=== PATIENT | male | born 1990 | race Caucasian/White ===

== ENCOUNTER 2022-12-14 09:41 | Emergency (ER) | payer SELFPAY ==
--- NOTE | ~2022-12-14 | CT_ITS ---
EXAMINATION: CT ABDOMEN AND PELVIS WITHOUT CONTRAST CLINICAL INFORMATION: Flank pain COMPARISON: None available. TECHNIQUE: Multidetector volumetric imaging was performed from the superior aspect of the liver through the pubic symphysis. Sagittal and coronal reformatted images were obtained on the technologist's workstation. This CT examination was performed using dose optimization techniques as appropriate, variously including the following: *Automated exposure control *Adjustment of mA and/or kV according to patient size (this includes techniques or standardized protocols for targeted exams where dose is matched to indication/reason for exam; i.e. extremities or head) *Use of iterative reconstruction technique DLP: 291 mGy-cm FINDINGS: Motion degrades this study LUNG BASES: The visualized lung bases are unremarkable. LIVER, GALLBLADDER, AND BILIARY TREE: Cannot exclude a low-density lesion in the right lobe. Coronal image 12 and axial image 34. Measures approximately 1.7 cm. Another possible small lesion on image 22 the axial imaging. The gallbladder is unremarkable with no evidence of radiopaque gallstones, gallbladder wall thickening, or obvious pericholecystic inflammatory changes. PANCREAS: Pancreas is not adequately seen due to lack of intravenous and oral contrast. No free fluid in the area. SPLEEN: Unremarkable. ADRENAL GLANDS: Unremarkable. KIDNEYS AND URETERS: Findings suggest some tiny foci which may represent tiny nonobstructing calculi versus nephrocalcinosis. There is a definitive calculus in the lower pole on the right measuring 3 mm which appears nonobstructing. Other smaller densities or calcifications are noted in the region of the renal periods. Possible mild hydronephrosis on the right. The right ureter is prominent to the level of the UVJ. Here we see a 3 mm calcification which may represent a distal ureteral calculus on the right. BLADDER: Unremarkable. GASTROINTESTINAL TRACT: The bowel pattern is felt to be overall nonobstructing. There is low density and coronal image 32 measuring approximately 2.5 x 1.6 cm. This could represent focal fluid within the bowel loop. Occult to evaluate on this noncontrast study. Appendix is not seen. Again limited from packed abdominal structures and no contrast ABDOMINAL WALL: No significant hernia is appreciated. LYMPH NODES: No bulky adenopathy VASCULAR: Unremarkable. PELVIC VISCERA: Unremarkable. OSSEOUS STRUCTURES: Findings suggest spondylolysis at L5-S1 on the right with possible healed spondylolysis on the left. There is grade 1 anterolisthesis of L5 relative to S1. CT/CT abdomen pelvis wo IV con IMPRESSION: Findings as described above. Mild hydronephrosis on the right and the ureter is prominent which does lead up to a 3 mm calculus in the deep pelvis. This may well represent a mildly obstructing distal right ureteral calculus near the UVJ. Otherwise smaller areas of increased density within the right and left kidney may represent evolving renal calculi. Nephrocalcinosis of other etiology cannot be excluded. Motion and lack of intravenous contrast as stated limits this exam. I cannot exclude a low-density lesion in the right lobe of liver consider ultrasound. Other findings are as described above Fleischner guidelines were followed.
[2022-12-14 09:58] VITALS: BP 000/00; PULSE 68; RESP 22; TEMP 35.7; O2SAT 100; BMI 20.2
--- NOTE | 2022-12-14 10:47 | ED.ABDPAIN ---
HPI - Abdominal Pain General Chief Complaint: Abdominal Pain Stated Complaint: severe stomach pain Time Seen by Provider: 12/14/22 10:27 Source: patient and coater associate Mode of arrival: ambulatory Limitations: no limitations History of Present Illness HPI narrative: 32 y/o [place] speaking male presents to the ER for evaluation of severe right sided flank pain that started at 7am today. The pain woke him up out of sleep. He states the pain is sharp, severe and is constant. It wraps around from his right middle back to the right side of his middle abdomen. It is associated with nausea but he has not vomited. He reports subjective fevers and chills. No urinary symptoms. No constipation or diarrhea. He reports history of kidney stone in the past but it did not feel like this. MD elicited complaint: abdominal pain and flank pain Pertinent past history: none Onset (ago): hour(s) (4) Location: R flank Severity: severe Pain scale (0-10): 10 Quality: stabbing and sharp Radiation: RUQ and RLQ Exacerbating factors: nothing Relieving factors: nothing Associated symptoms: nausea, fever and chills Related Data Previous Rx's Medication Instructions Recorded ibuprofen 600 mg tablet 600 mg PO Q8H PRN pain #20 tabs 12/14/22 oxycodone 5 mg tablet 5 mg PO Q8H PRN severe pain (scale 12/14/22 score 7-10) #6 tabs prednisone 20 mg tablet 40 mg PO DAILY #6 tabs 12/14/22 tamsulosin 0.4 mg capsule (Flomax) 0.4 mg PO DAILY #14 caps 12/14/22 Allergies Allergy/AdvReac Type Severity Reaction Status Date / Time No Known Allergies Allergy Verified 12/14/22 10:04 Review of Systems Review of Systems Yes all other systems are reviewed and are negative [facility] Social History Social History Alcohol intake: current Smoked in Last 30 Days: Yes Use of substances other than those prescribed or required for medical reasons: Yes Substance Use Type: Crack/Cocaine and Marijuana Advance Directives: No Advance Directives Information Provided: Yes Physical Exam ED Vital Signs: Vital Signs - 24 hr 12/14/22 09:58 12/14/22 10:55 12/14/22 11:35 Temperature 96.3 F L Pulse Rate 68 55 51 Respiratory Rate 22 H 22 H 24 H Blood Pressure 000/00 L 123/69 98/63 Pulse Oximetry 100 100 96 Oxygen Delivery Method Room Air Room Air Room Air 12/14/22 13:26 Temperature Pulse Rate 53 Respiratory Rate 16 Blood Pressure 112/76 Pulse Oximetry 98 Oxygen Delivery Method Room Air BMI result Body Mass Index 20.2 Appearance: Alert. Oriented X3. Pacing in the room, restless Head: normocephalic, atraumatic. Eyes: Pupils equal, round and reactive to light. ENT: Pharynx normal. No tonsillar swelling or exudate. Neck: Normal inspection. Neck supple. CVS: Normal heart rate and rhythm. Pulses normal. Respiratory: No respiratory distress. Breath sounds normal. Abdomen: Thin, soft with right sided tenderness in the middle abdomen. Negative Pritchard's sign. +BS x4 +CVA tenderness on the right. Skin: Skin warm and dry. Normal skin color. Normal skin turgor. No rashes. Extremities: No lower extremity edema. No joint swelling. Neuro/psych: Oriented X 3. No motor deficit. No sensory deficit. CN II-XII intact. Normal speech and cognition. Medical Decision Making Medical Decision Making [facility] Narrative: 32 yo male presenting with acute onset of right sided flank pain that radiates to the right side of his abdomen. He arrives to the ER in significant pain. +CVA tenderness. Concern for obstructing stone. Labs showing mild leukocytosis, likely reactive. no fevers. he was treated with IVF, morphine and toradol with significant improvement in his pain. CT scan showing 3mm stone distal ureter w/ mild hydro. discussed findings, dx and tx with the patient using a staff attorney. he is stable for d/c home with pain control and urology follow up. Differential Diagnosis Differential Diagnoses: The differential diagnosis associated with the presentation includes ureteral stone with hydronephrosis, pyelonephritis, UTI, cholecystitis, appendicitis, musclar pain Lab Data [facility] Lab Attestation statement: I reviewed the patient's lab results. 12/14/22 10:39 12/14/22 10:39 Labs: Lab Results 12/14/22 12/14/22 12/14/22 Range/Units 10:39 10:39 14:46 WBC 12.0 H (4.8-10.8) X10*3/uL RBC 4.71 (4.60-5.80) X10*6/uL Hgb 15.0 (14.0-18.0) g/dl Hct 42.5 (42.0-52.0) % MCV 90.2 (80.0-98.0) fL MCH 31.8 (27.0-33.0) pg MCHC 35.3 (31.0-36.0) g/dl RDW 11.2 (11.0-16.0) % Plt Count 302 (160-400) X10*3/uL MPV 10.6 (9.4-12.4) fL Immature Gran % (Auto) 0.5 H (0.0-0.4) % Neut % (Auto) 76.1 H (45-73) % Lymph % (Auto) 17.1 L (20-40) % [place] % (Auto) 5.5 (2-11) % Eos % (Auto) 0.4 (0-4) % Baso % (Auto) 0.4 (0-2) % Lymph # (Auto) 2.1 (1.2-4.9) X10*3/uL [place] # (Auto) 0.7 (0.1-1.2) X10*3/uL Eos # (Auto) 0.1 (0.0-0.4) X10*3/uL Baso # (Auto) 0.1 (0.0-0.2) X10*3/uL Abs Immat Gran (auto) 0.06 H (0.00-0.03) X10*3/uL Absolute Neuts (auto) 9.2 H (2.0-8.3) x10*3/uL Absolute Nucleated RBC 0.000 (0.0-0.012) X10*3/uL Nucleated RBC % (auto) 0.0 (0.0-0.2) /100WBC Sodium 139 (135-145) mmol/L Potassium 4.2 (3.3-5.1) mmol/L Chloride 107 (96-108) mmol/L Carbon Dioxide 19 L (22-29) mmol/L Anion Gap 17 (12-20) BUN 15 (9-16) mg/dL Creatinine 1.14 (0.5-1.4) mg/dL Estim Creat Clear Calc 72.7 Estimated GFR > 60 Random Glucose 124 H (60-115) mg/dL Calcium 9.9 (8.4-10.2) mg/dL Total Bilirubin 0.5 (0.0-1.0) mg/dL Direct Bilirubin 0.1 (0.0-0.5) mg/dL AST 22 (5-37) U/L ALT 15 (0-40) U/L Alkaline Phosphatase 68 (39-117) U/L Total Protein 7.5 (6.5-8.0) g/dL Albumin 4.8 (3.5-5.0) g/dL Lipase 34 (8-78) U/L Urine Color Yellow Urine Appearance Hazy Urine pH 8.5 (5.0-9.0) Ur Specific [place] 1.015 (1.005-1.025) Urine Protein Trace (Neg-Trace) mg/dL Urine Glucose (UA) Negative (Negative) mg/dL Urine Ketones 15 (Negative) mg/dL Urine Blood Large (3+) H (Negative) Urine Nitrite Negative (Negative) Ur Leukocyte Esterase Negative (Negative) Independent Interpretation I performed an independent interpretation of an: CT Scan Interpretation: hydronephrosis on the right, stones within the right kidney and in the distal ureter near the bladder Radiology Impression Discussion of test interpretation with radiology: I have reviewed the radiologist's reading. Radiologist Impression: CT/CT abdomen pelvis wo IV con IMPRESSION: Findings as described above. Mild hydronephrosis on the right and the ureter is prominent which does lead up to a 3 mm calculus in the deep pelvis. This may well represent a mildly obstructing distal right ureteral calculus near the UVJ. ? Otherwise smaller areas of increased density within the right and left kidney may represent evolving renal calculi. Nephrocalcinosis of other etiology cannot be excluded. ? Motion and lack of intravenous contrast as stated limits this exam. I cannot exclude a low-density lesion in the right lobe of liver consider ultrasound. ? Other findings are as described above ? Fleischner guidelines were followed. Prescription Management I considered prescription management with: Pain Medication Medications Administered Discontinued Medications Generic Name Dose Route Start Last Admin Trade Name Freq PRN Reason Stop Dose Admin Ketorolac Tromethamine 30 mg 12/14/22 10:40 12/14/22 10:52 Ketorolac Tromethamine 30 Mg/Ml Vial IVPUSH 12/14/22 10:41 30 mg ONCE ONE Administration Morphine Sulfate 4 mg 12/14/22 10:41 12/14/22 10:52 Morphine Sulfate 4 Mg/Ml Cartridge IVPUSH 12/14/22 10:42 4 mg ONCE ONE Administration Protocol Ondansetron HCl 4 mg 12/14/22 10:40 12/14/22 10:52 Ondansetron Hcl 4 Mg/2 Ml Vial IVPUSH 12/14/22 10:41 4 mg ONCE ONE Administration Prednisone 40 mg 12/14/22 12:57 12/14/22 13:20 Prednisone 20 Mg Tablet PO 12/14/22 12:58 40 mg ONCE ONE Administration Tamsulosin HCl 0.4 mg 12/14/22 12:57 12/14/22 13:20 Tamsulosin Hcl 0.4 Mg Capsule PO 12/14/22 12:58 0.4 mg ONCE ONE Administration Critical Care Time Critical Care Time Critical Care Time: No Discharge Plan Discharge Clinical Impression: Hydronephrosis with ureteral calculus Patient Disposition: Home, Self-Care Instructions: Ureteral Stones (ED) Additional Instructions: Your CT scan showed a 3mm kidney stone that is causing your pain You will likely pass this stone on your own at home Take all of the prescribed medications as directed Start the predisnone and tamsulosin tomorrow because you were given doses of these in the ER today Drink plenty of fluids Follow up with Urology, name and number below If you develop new or worsening symptoms call 911 or come back to the ER for further evaluation. Phillips tomograf?a computarizada mostr? un c?lculo renal de 3 mm que est? causando phillips dolor Es probable que pase esta jermain por phillips cuenta en casa [place] todos los medicamentos recetados seg?n las indicaciones. Comience con la predisona y la tamsulosina ma?tram porque le dieron dosis de estos en la tyler de emergencias hoy. Beber mucho l?quido Seguimiento con Urolog?a, nombre y n?cele a continuaci?n Si desarrolla s?ntomas nuevos o que empeoran, llame al 911 o regrese a la tyler de emergencias para tommy evaluaci?n adicional. Prescriptions: New tamsulosin [Flomax] 0.4 mg capsule 0.4 mg PO DAILY Qty: 14 0RF ibuprofen 600 mg tablet 600 mg PO Q8H PRN (Reason: pain) Qty: 20 0RF oxycodone 5 mg tablet 5 mg PO Q8H PRN (Reason: severe pain (scale score 7-10)) Qty: 6 0RF Rx Instructions: Partial Fill upon patient request. prednisone 20 mg tablet 40 mg PO DAILY Qty: 6 0RF Referrals: Gibran Robbins MD [Physician] - (kidney stone w/ hydro) Print Language: [place]
[2022-12-14 10:50] LABS: MANUAL DIFF FLAG NO
[2022-12-14] MEDS: Ketorolac Tromethamine 30 MG/ML VIAL IVPUSH (10:52)
[2022-12-14] MEDS: ondansetron HCL 4 MG/2 ML VIAL IVPUSH (10:52)
[2022-12-14] MEDS: Morphine Sulfate 4 MG/ML CARTRIDGE IVPUSH (10:52)
[2022-12-14 10:55] VITALS: BP 123/69; PULSE 55; RESP 22; O2SAT 100
[2022-12-14 10:56] LABS: Basophils Absolute Auto 0.1 X10*3/uL (0.0-0.2); Basophils Percent Auto 0.4 % (0-2); Eosinophils Absolute Auto 0.1 X10*3/uL (0.0-0.4); Eosinophils Percent Auto 0.4 % (0-4); Hematocrit 42.5 % (42.0-52.0); Imm Gran Abs Auto 0.06 X10*3/uL (0.00-0.03); Imm Gran Pct Auto 0.5 % (0.0-0.4); Lymphocytes Absolute Auto 2.1 X10*3/uL (1.2-4.9); Lymphocytes Percent Auto 17.1 % (20-40); Mean Corpuscular HGB Conc 35.3 g/dl (31.0-36.0); Mean Corpuscular Hemoglobin 31.8 pg (27.0-33.0); Mean Corpuscular Volume 90.2 fL (80.0-98.0); Mean Platelet Volume 10.6 fL (9.4-12.4); Monocytes Absolute Auto 0.7 X10*3/uL (0.1-1.2); Monocytes Percent Auto 5.5 % (2-11); Neutrophils Absolute Auto 9.2 x10*3/uL (2.0-8.3); Neutrophils Percent Auto 76.1 % (45-73); Platelet Count 302 X10*3/uL (160-400); Red Blood Count 4.71 X10*6/uL (4.60-5.80); Red Cell Distribution Width 11.2 % (11.0-16.0)
[2022-12-14 11:15] LABS: Alanine Aminotransferase 15 U/L (0-40); Albumin Level 4.8 g/dL (3.5-5.0); Alkaline Phosphatase 68 U/L (39-117); Anion Gap 17 (12-20); Aspartate Amino Transferase 22 U/L (5-37); Bilirubin Direct 0.1 mg/dL (0.0-0.5); Bilirubin Total 0.5 mg/dL (0.0-1.0); Blood Urea Nitrogen 15 mg/dL (9-16); Calcium 9.9 mg/dL (8.4-10.2); Carbon Dioxide 19 mmol/L (22-29); Chloride 107 mmol/L (96-108); Creatinine Clr Calc Pharmacy 72.7; Estimated Glomerular Filt Rate > 60; Glucose Random 124 mg/dL (60-115); Lipase 34 U/L (8-78); Potassium 4.2 mmol/L (3.3-5.1); Sodium 139 mmol/L (135-145); Total Protein 7.5 g/dL (6.5-8.0)
[2022-12-14 11:35] VITALS: BP 98/63; PULSE 51; RESP 24; O2SAT 96
--- NOTE | 2022-12-14 12:38 | PC.NURSE ---
s/p medication interventions pt asleep, appears more restful. awaits dispo
[2022-12-14] MEDS: Tamsulosin HCL 0.4 MG CAPSULE PO (13:20)
[2022-12-14] MEDS: predniSONE 20 MG TABLET 40 MG PO (13:20)
[2022-12-14 13:26] VITALS: BP 112/76; PULSE 53; RESP 16; O2SAT 98
[2022-12-14 14:53] LABS: Appearance Urine Hazy; Color Urine Yellow; Glucose Urine UA Negative (Negative); Leukocyte Esterase Urine Negative (Negative); Nitrite Urine Negative (Negative); PH 8.5 (5.0-9.0); Specific Gravity - Urine 1.015 (1.005-1.025); UMIC TRIGGER UACC YES; Urine Blood Large (3+) (Negative); Urine Ketones 15 mg/dL (Negative); Urine Protein Trace mg/dL (Neg-Trace)
[2022-12-14 17:55] LABS: Bacteria Urine None Seen (None Seen); Hyaline Casts Urine 0-2 /LPF (0-2); RBC Urine >20 /HPF (0-2); Squamous Epithelial Cell Urine 0-2 /HPF (0-2); WBC Urine 0-5 /HPF (0-5)
== END 2022-12-14 15:34 | disposition home or self-care (01) ==
PROVIDERS: Emergency Provider Emergency Medicine
DX: N13.2 Hydronephrosis with renal and ureteral calculous obstruction (principal); Z79.899 Other long term (current) drug therapy
CPT/HCPCS: 36415; 74176; 80048; 80076; 81001; 83690; 85025; 96374; 96375; 99284; J1885; J2270; J2405

== ENCOUNTER 2025-01-31 11:46 | Emergency (ER) | payer SELFPAY ==
--- NOTE | ~2025-01-31 | CT_ITS ---
EXAMINATION: CT ABDOMEN AND PELVIS WITHOUT CONTRAST CLINICAL INFORMATION: Left flank pain. DLP: 255 mGY*cm COMPARISON: December 14, 2022 TECHNIQUE: Multidetector volumetric imaging was performed from the superior aspect of the liver through the pubic symphysis. Sagittal and coronal reformatted images were obtained on the technologist's workstation. This CT examination was performed using dose optimization techniques as appropriate, variously including the following: *Automated exposure control *Adjustment of mA and/or kV according to patient size (this includes techniques or standardized protocols for targeted exams where dose is matched to indication/reason for exam; i.e. extremities or head) *Use of iterative reconstruction technique FINDINGS: LUNG BASES: The visualized lung bases are unremarkable. LIVER, GALLBLADDER, AND BILIARY TREE: There is a low attenuating lesion in the anterior-inferior right hepatic lobe measuring 1.9 x 2.0 cm and 44 Hounsfield units. It appeared similar on the prior study.. The gallbladder is unremarkable with no evidence of radiopaque gallstones, gallbladder wall thickening, or obvious pericholecystic inflammatory changes. PANCREAS: Unremarkable. SPLEEN: Unremarkable. ADRENAL GLANDS: Unremarkable. KIDNEYS AND URETERS: Again noted is evidence of faint medullary nephrocalcinosis involving the right greater than left kidneys. There are a few punctate 1 mm stones in the kidneys, bilateral. Due to robust muscle bulk, very little intra-abdominal fat, and an empty urinary bladder, delineation of the ureters in the abdomen and pelvis is limited. There is mild hydronephrosis on the left and a 4 mm stone in the distal ureter, near the UVJ. BLADDER: Decompressed. Left UVJ stone. GASTROINTESTINAL TRACT: Somewhat limited evaluation due to low intra-abdominal fat and well developed musculature. The small and large bowel are unremarkable. The appendix is not well seen. ABDOMINAL WALL: No significant hernia is appreciated. LYMPH NODES: Normal. VASCULAR: Unremarkable. PELVIC VISCERA: Unremarkable. OSSEOUS STRUCTURES: Bilateral pars intraarticularis defect is present at L5 with nonunion on the right and deformity with bridging bone on the left. CT/CT abdomen pelvis wo IV con IMPRESSION: 4 mm left UVJ stone with mild hydronephrosis. Suspected mild nephrocalcinosis, right greater than left. Possible etiologies include distal renal tubular acidosis, medullary sponge kidney, hyperparathyroidism, as well as other etiologies. Indeterminate liver lesion in segment 5. Follow-up MRI dynamic liver protocol without and with IV contrast. 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 Fleischner guidelines were followed. Electronically signed by: Blue Rice MD 01/31/2025 01:10 PM EDT
--- NOTE | 2025-01-31 12:06 | ED_ITS ---
HPI - Abdominal Pain General Chief Complaint: Abdominal Pain Stated Complaint: Severe abd pain Time Seen by Provider: 01/31/25 12:34 Related Data Previous Rx's ?Medication ?Instructions ?Recorded ibuprofen 600 mg tablet 600 mg PO Q8H PRN pain #20 tabs 12/14/22 oxycodone 5 mg tablet 5 mg PO Q8H PRN severe pain (scale 12/14/22 score 7-10) #6 tabs prednisone 20 mg tablet 40 mg (2 x 20 mg) PO DAILY #6 tabs 12/14/22 tamsulosin 0.4 mg capsule (Flomax) 0.4 mg PO DAILY #14 caps 12/14/22 ketorolac 10 mg tablet 10 mg PO Q8H 5 days #15 tabs 01/31/25 ondansetron 4 mg disintegrating 4 mg PO Q12H PRN nausea and 01/31/25 tablet vomiting 5 days #10 tabs prednisone 20 mg tablet 40 mg (2 x 20 mg) PO DAILY PRN 01/31/25 pain (scale score 4-6) 5 days #10 tabs tamsulosin 0.4 mg capsule (Flomax) 0.4 mg PO BEDTIME #14 caps 01/31/25 Allergies Allergy/AdvReac Type Severity Reaction Status Date / Time No Known Allergies Allergy Verified 01/31/25 12:09 [facility] Social History Social History Alcohol intake: current Alcohol intake frequency: a few times a week Smoked in Last 30 Days: Yes Substance Use Type: Crack/Cocaine and Marijuana Advance Directives: No Advance Directives Information Provided: Yes Physical Exam ED Vital Signs: Vital Signs - 24 hr 01/31/25 12:07 01/31/25 12:47 01/31/25 14:00 Temperature 97.2 F 98.8 F Pulse Rate 64 61 56 Respiratory Rate 38 H 16 16 Blood Pressure 123/54 L 104/62 107/62 Pulse Oximetry 100 100 96 Oxygen Delivery Method Room Air Room Air BMI result Body Mass Index 18.2 Course Course Course Narrative: This is an RME: Additional HPI, ROS, PE not included below will be deferred to primary provider. RME assessment and note performed by: Karli Ward PA-C This is a [id number] who presents to the ER with concerns for severe left sided flank pain which started this AM. Associated nausea and vomiting. Decreased urinary output. Hx of kidney stones, took flomax and prednisone rx from 2022 this morning. Plan: Labs, UA, further ER eval needed Reevaluation(s) Reevaluation #1: this is a duplicate note. please see lydia's note regarding patient's visit on 01/31/25 Medical Decision Making Lab Data 01/31/25 12:45 01/31/25 12:45 Labs: Lab Results 01/31/25 01/31/25 Range/Units 12:45 16:12 WBC 10.0 (4.8-10.8) X10*3/uL RBC 4.42 L (4.60-5.80) X10*6/uL Hgb 14.0 (14.0-18.0) g/dl Hct 39.5 L (42.0-52.0) % MCV 89.4 (80.0-98.0) fL MCH 31.7 (27.0-33.0) pg MCHC 35.4 (31.0-36.0) g/dl RDW 11.8 (11.0-16.0) % Plt Count 237 (160-400) X10*3/uL MPV 10.3 (9.4-12.4) fL Immature Gran % (Auto) 0.3 (0.0-0.4) % Neut % (Auto) 72.6 (45-73) % Lymph % (Auto) 20.0 (20-40) % [place] % (Auto) 5.7 (2-11) % Eos % (Auto) 0.7 (0-4) % Baso % (Auto) 0.7 (0-2) % Lymph # (Auto) 2.0 (1.2-4.9) X10*3/uL [place] # (Auto) 0.6 (0.1-1.2) X10*3/uL Eos # (Auto) 0.1 (0.0-0.4) X10*3/uL Baso # (Auto) 0.1 (0.0-0.2) X10*3/uL Abs Immat Gran (auto) 0.03 (0.00-0.03) X10*3/uL Absolute Neuts (auto) 7.3 (2.0-8.3) x10*3/uL Absolute Nucleated RBC 0.000 (0.0-0.012) X10*3/uL Nucleated RBC % (auto) 0.0 (0.0-0.2) /100WBC Sodium 141 (135-145) mmol/L Potassium 3.7 (3.3-5.1) mmol/L Chloride 108 (96-108) mmol/L Carbon Dioxide 21 L (22-29) mmol/L Anion Gap 16 (12-20) BUN 14 (9-16) mg/dL Creatinine 0.98 (0.5-1.4) mg/dL Estim Creat Clear Calc 79.0 Estimated GFR > 60 Random Glucose 136 H (60-115) mg/dL Calcium 9.9 (8.4-10.2) mg/dL Magnesium 1.9 (1.6-2.6) mg/dL Total Bilirubin 0.4 (0.0-1.0) mg/dL Direct Bilirubin 0.1 (0.0-0.5) mg/dL AST 21 (5-37) U/L ALT 16 (0-40) U/L Alkaline Phosphatase 67 (39-117) U/L Total Protein 7.2 (6.5-8.0) g/dL Albumin 5.0 (3.5-5.0) g/dL Lipase 62 (8-78) U/L Urine Color Yellow Urine Appearance Clear Urine pH >= 9.0 (5.0-9.0) Ur Specific [place] 1.025 (1.005-1.025) Urine Protein 100 (2+) H (Neg-Trace) mg/dL Urine Glucose (UA) Negative (Negative) mg/dL Urine Ketones 40 (Negative) mg/dL Urine Blood Moderate (2+) H (Negative) Urine Nitrite Negative (Negative) Ur Leukocyte Esterase Trace H (Negative) Urine RBC >20 H (0-2) /HPF Urine WBC 0-5 (0-5) /HPF Ur Squamous Epith Cells 0-2 (0-2) /HPF Urine Bacteria None Seen (None Seen) Hyaline Casts 0-2 (0-2) /LPF Medications Administered Discontinued Medications Generic Name Dose Route Start Last Admin Trade Name Freq PRN Reason Stop Dose Admin Hydromorphone HCl 1 mg 01/31/25 14:01 01/31/25 17:03 Hydromorphone Hcl 1 Mg/Ml Syringe IVPUSH 01/31/25 14:02 Not Given ONCE ONE Protocol Sodium Chloride 1,000 mls @ 999 mls/hr 01/31/25 13:00 01/31/25 14:30 Ns IV 01/31/25 14:00 Infused .Q1H1M [facility] In[facility] Ketorolac Tromethamine 30 mg 01/31/25 13:52 01/31/25 13:57 Ketorolac Tromethamine 30 Mg/Ml Vial IVPUSH 01/31/25 13:53 30 mg ONCE ONE Administration Morphine Sulfate 4 mg 01/31/25 12:59 01/31/25 13:19 Morphine Sulfate 4 Mg/Ml Cartridge IVPUSH 01/31/25 13:00 4 mg ONCE ONE Administration Protocol Ondansetron HCl 4 mg 01/31/25 12:59 01/31/25 13:19 Ondansetron Hcl 4 Mg/2 Ml Vial IVPUSH 01/31/25 13:00 4 mg ONCE ONE Administration Discharge Plan Discharge Clinical Impression: Calculus of ureterovesical junction (UVJ) Patient Disposition: Home, Self-Care Instructions: Ureteral Stones (ED) Additional Instructions: Your blood work today is reassuring. Your urine shows microscopic blood consistent with passing a stone. no infection. The CT scan of your abdomen shows a 4 mm stone attempting to pass into your bladder. This is causing your pain. A stone this size should pass on its own however I am prescribing some medication to help with its passage. Prednisone as a steroid that will help with inflammation. Take this as prescribed over the next few days. Flomax has been sent to your pharmacy. Take this as prescribed daily. Toradol as an anti-inflammatory pain medication that you were given through the IV in the ED today with improvement in pain. I am sending an oral prescription to your pharmacy. Do not take this with other NSAIDs such as Motrin as this can cause increased risk of GI bleeding. Please follow up with Urology. You have been provided with a referral. Call them to establish care. They will not call you.. Return with any new or worsening symptoms. In the case of an emergency call 911. Prescriptions: New prednisone 20 mg tablet 40 mg PO DAILY PRN (Reason: pain (scale score 4-6)) 5 Days Qty: 10 0RF tamsulosin [Flomax] 0.4 mg capsule 0.4 mg PO BEDTIME Qty: 14 0RF ondansetron 4 mg tablet,disintegrating 4 mg PO Q12H PRN (Reason: nausea and vomiting) 5 Days Qty: 10 0RF ketorolac 10 mg tablet 10 mg PO Q8H 5 Days Qty: 15 0RF No Action tamsulosin [Flomax] 0.4 mg capsule 0.4 mg PO DAILY Qty: 14 0RF ibuprofen 600 mg tablet 600 mg PO Q8H PRN (Reason: pain) Qty: 20 0RF oxycodone 5 mg tablet 5 mg PO Q8H PRN (Reason: severe pain (scale score 7-10)) Qty: 6 0RF Rx Instructions: Partial Fill upon patient request. prednisone 20 mg tablet 40 mg PO DAILY Qty: 6 0RF Referrals: [facility] [place] [facility] [Provider Group] - 1 week (4 mm UVJ stone) Interventions: ED Discharge Assessment Last Done: 01/31/25 17:01 Discharge Date/Time: 01/31/25 17:03 Print Language: Unable To Collect
[2025-01-31 12:07] VITALS: BP 123/54; PULSE 64; RESP 38; TEMP 36.2; O2SAT 100; BMI 18.2
[2025-01-31 12:47] VITALS: BP 104/62; PULSE 61; RESP 16; O2SAT 100
[2025-01-31 12:49] LABS: MANUAL DIFF FLAG NO
[2025-01-31 12:50] LABS: Basophils Absolute Auto 0.1 X10*3/uL (0.0-0.2); Basophils Percent Auto 0.7 % (0-2); Eosinophils Absolute Auto 0.1 X10*3/uL (0.0-0.4); Eosinophils Percent Auto 0.7 % (0-4); Hematocrit 39.5 % (42.0-52.0); Imm Gran Abs Auto 0.03 X10*3/uL (0.00-0.03); Imm Gran Pct Auto 0.3 % (0.0-0.4); Mean Corpuscular HGB Conc 35.4 g/dl (31.0-36.0); Mean Corpuscular Hemoglobin 31.7 pg (27.0-33.0); Mean Corpuscular Volume 89.4 fL (80.0-98.0); Mean Platelet Volume 10.3 fL (9.4-12.4); Monocytes Absolute Auto 0.6 X10*3/uL (0.1-1.2); Monocytes Percent Auto 5.7 % (2-11); Neutrophils Absolute Auto 7.3 x10*3/uL (2.0-8.3); Neutrophils Percent Auto 72.6 % (45-73); Platelet Count 237 X10*3/uL (160-400); Red Blood Count 4.42 X10*6/uL (4.60-5.80); Red Cell Distribution Width 11.8 % (11.0-16.0)
--- NOTE | 2025-01-31 12:54 | PC.NURSE ---
Patient is a [id number] who presents to the ER with concerns for severe left sided flank pain which started this AM. Associated nausea and vomiting. Decreased urinary output. Hx of kidney stones. Arrived in room 18 extremely uncomfortable. Writhing in pain. Lungs clear bilat. Respirations even and non-labored. Abdomen soft with c/o left flank pain. Positive pedal pulses with no edema noted.
--- NOTE | 2025-01-31 13:00 | ED.GENADULT ---
HPI - General Adult General Chief complaint: Abdominal Pain Stated complaint: Severe abd pain Time Seen by Provider: 01/31/25 12:34 Source: patient and family Mode of arrival: ambulatory Limitations: no limitations History of Present Illness ED Provider: BERENICE TOBAR PA-C HPI narrative: This is a 34 year old male with pmhx significant for nephrolithiasis who presents for left flank pain that began two hours ago. He rates his pain 20/10 in severity. Reports feeling like something is stuck when he is urinating. Reports vomiting twice this morning with associated suprapubic tenderness. His last kidney stone was 4-5 months ago and he was able to pass it on his own. States this feels similar. Trialed a dose of prednisone and flomax this morning which he states he had left over. Denies fever, diarrhea, constipation, burning with urination, or blood in urine. Related Data Previous Rx's ?Medication ?Instructions ?Recorded ibuprofen 600 mg tablet 600 mg PO Q8H PRN pain #20 tabs 12/14/22 oxycodone 5 mg tablet 5 mg PO Q8H PRN severe pain (scale 12/14/22 score 7-10) #6 tabs prednisone 20 mg tablet 40 mg (2 x 20 mg) PO DAILY #6 tabs 12/14/22 tamsulosin 0.4 mg capsule (Flomax) 0.4 mg PO DAILY #14 caps 12/14/22 ketorolac 10 mg tablet 10 mg PO Q8H 5 days #15 tabs 01/31/25 ondansetron 4 mg disintegrating 4 mg PO Q12H PRN nausea and 01/31/25 tablet vomiting 5 days #10 tabs prednisone 20 mg tablet 40 mg (2 x 20 mg) PO DAILY PRN 01/31/25 pain (scale score 4-6) 5 days #10 tabs tamsulosin 0.4 mg capsule (Flomax) 0.4 mg PO BEDTIME #14 caps 01/31/25 Allergies Allergy/AdvReac Type Severity Reaction Status Date / Time No Known Allergies Allergy Verified 01/31/25 12:09 Review of Systems Review of Systems: Constitutional: No fever, chills, fatigue, night sweats, weight changes ENT/Mouth: No ear pain, hearing loss, nasal congestion, sinus pain, rhinorrhea, sore throat Eyes: No eye pain, swelling, redness, vision changes, discharge Cardio: No chest pain, palpitations, REY, orthopnea, peripheral edema Pulm: No SOB, cough, sputum, wheezing, dyspnea, hemoptysis GI: No hematemesis, abdominal pain, diarrhea, constipation, hematochezia, melena, +nausea/ vomiting : No irregular bleeding, dysuria, frequency, urgency, hesitancy, hematuria, flank pain, urinary flow changes, urinary incontinence or retention, +L flank pain MSK: No back pain, neck pain, joint pain, myalgias Skin: No lesions, rashes Neuro: No weakness, numbness, paresthesias, LOC, dizziness, headache Psych: No anxiety/panic, depression, SI/HI, AH/VH All other systems reviewed and are negative. [facility]LY [facility] Past Medical History Attestation statement: The following information was validated with the patient. Source: old records reviewed, obtained from family and nursing notes reviewed Social History Social History Alcohol intake: current Alcohol intake frequency: a few times a week Smoked in Last 30 Days: Yes Substance Use Type: Crack/Cocaine and Marijuana Advance Directives: No Advance Directives Information Provided: Yes Physical Exam ED Vital Signs: Vital Signs - 24 hr 01/31/25 12:07 01/31/25 12:47 01/31/25 14:00 Temperature 97.2 F 98.8 F Pulse Rate 64 61 56 Respiratory Rate 38 H 16 16 Blood Pressure 123/54 L 104/62 107/62 Pulse Oximetry 100 100 96 Oxygen Delivery Method Room Air Room Air 01/31/25 16:09 01/31/25 17:01 Temperature 98.2 F 980 F H Pulse Rate 50 60 Respiratory Rate 18 16 Blood Pressure 96/74 97/64 Pulse Oximetry 100 100 Oxygen Delivery Method Room Air Room Air BMI result Body Mass Index 18.2 Afebrile General: Appears uncomfortable, rocking back and forth on exam bed Skin: Warm, dry, intact. No rashes or lesions. Head: Normocephalic, atraumatic. EENT: Hearing is intact b/l. Conjunctiva clear. Sclera is anicteric. Moist mucous membranes.? Neck: Supple without LAD. FROM. Trachea midline.? Cardiac: Chest wall symmetric. RRR Lungs: Tachypneic without accessory muscle use. CTA bilaterally Abdomen: Abdomen is soft, nondistended, nontender to palpation, no rebound tenderness or guarding. Active bowel sounds x4. No CVAT. Back: No midline spinous or paraspinal tenderness. No step off deformity. Ext: Upper and lower extremities atraumatic, without tenderness, deformity, swelling or erythema Neuro: AOx3. Normal speech.NV intact distally. Course Course Course Narrative: CBC without leukocytosis or left shift. No anemia. H&H stable. Chemistry without acute electrolyte abnormality requiring intervention. No SG. Random glucose 136. Normal liver function. Urine showing moderate amount of blood and RBCs. No urine bacteria. CT abdomen/pelvis showing 4 mm left UVJ stone with mild hydronephrosis. > patient initially treated with IV morphine without improvement. IV Toradol administered, patient is sleeping comfortably on exam bed. Zofran given for nausea with effect. > given size of stone, likely to pass on its own. Will send patient home with prednisone, Toradol and Flomax. Urology referral provided. Patient agreeable. Patient has remained stable throughout ED visit today. Discussed worrisome signs and symptoms and when to return to the ED. All questions answered at this time. Patient is agreeable with disposition and stable for discharge. Medications Administered Discontinued Medications Generic Name Dose Route Start Last Admin Trade Name Aydenq PRN Reason Stop Dose Admin Hydromorphone HCl 1 mg 01/31/25 14:01 01/31/25 17:03 Hydromorphone Hcl 1 Mg/Ml Syringe IVPUSH 01/31/25 14:02 Not Given ONCE ONE Protocol Sodium Chloride 1,000 mls @ 999 mls/hr 01/31/25 13:00 01/31/25 14:30 Ns IV 01/31/25 14:00 Infused .Q1H1M [facility] Ketorolac Tromethamine 30 mg 01/31/25 13:52 01/31/25 13:57 Ketorolac Tromethamine 30 Mg/Ml Vial IVPUSH 01/31/25 13:53 30 mg ONCE ONE Administration Morphine Sulfate 4 mg 01/31/25 12:59 01/31/25 13:19 Morphine Sulfate 4 Mg/Ml Cartridge IVPUSH 01/31/25 13:00 4 mg ONCE ONE Administration Protocol Ondansetron HCl 4 mg 01/31/25 12:59 01/31/25 13:19 Ondansetron Hcl 4 Mg/2 Ml Vial IVPUSH 01/31/25 13:00 4 mg ONCE ONE Administration Medical Decision Making Medical Decision Making [facility] Narrative: This is a 34 year old male with pmhx significant for nephrolithiasis who presents for left flank pain that began two hours ago. Afebrile, not tachycardic. He is obviously uncomfortable appearing, rocking back and forth on exam bed. His abdomen is benign and he does not have CVA tenderness. Differential diagnosis includes renal colic, nephrolithiasis, hydronephrosis, pyelonephritis, UTI, constipation, anemia, electrolyte abnormality, dehydration Plan for labs, UA, CT abdomen/pelvis, pain control, IV fluids and re-evaluation Differential Diagnosis Differential Diagnoses: The differential diagnosis associated with the presentation includes As above Admission/Observation Not indicated Lab Data [facility] Lab Attestation statement: I reviewed the patient's lab results. As above 01/31/25 12:45 01/31/25 12:45 Labs: Lab Results 01/31/25 01/31/25 Range/Units 12:45 16:12 WBC 10.0 (4.8-10.8) X10*3/uL RBC 4.42 L (4.60-5.80) X10*6/uL Hgb 14.0 (14.0-18.0) g/dl Hct 39.5 L (42.0-52.0) % MCV 89.4 (80.0-98.0) fL MCH 31.7 (27.0-33.0) pg MCHC 35.4 (31.0-36.0) g/dl RDW 11.8 (11.0-16.0) % Plt Count 237 (160-400) X10*3/uL MPV 10.3 (9.4-12.4) fL Immature Gran % (Auto) 0.3 (0.0-0.4) % Neut % (Auto) 72.6 (45-73) % Lymph % (Auto) 20.0 (20-40) % [place] % (Auto) 5.7 (2-11) % Eos % (Auto) 0.7 (0-4) % Baso % (Auto) 0.7 (0-2) % Lymph # (Auto) 2.0 (1.2-4.9) X10*3/uL [place] # (Auto) 0.6 (0.1-1.2) X10*3/uL Eos # (Auto) 0.1 (0.0-0.4) X10*3/uL Baso # (Auto) 0.1 (0.0-0.2) X10*3/uL Abs Immat Gran (auto) 0.03 (0.00-0.03) X10*3/uL Absolute Neuts (auto) 7.3 (2.0-8.3) x10*3/uL Absolute Nucleated RBC 0.000 (0.0-0.012) X10*3/uL Nucleated RBC % (auto) 0.0 (0.0-0.2) /100WBC Sodium 141 (135-145) mmol/L Potassium 3.7 (3.3-5.1) mmol/L Chloride 108 (96-108) mmol/L Carbon Dioxide 21 L (22-29) mmol/L Anion Gap 16 (12-20) BUN 14 (9-16) mg/dL Creatinine 0.98 (0.5-1.4) mg/dL Estim Creat Clear Calc 79.0 Estimated GFR > 60 Random Glucose 136 H (60-115) mg/dL Calcium 9.9 (8.4-10.2) mg/dL Magnesium 1.9 (1.6-2.6) mg/dL Total Bilirubin 0.4 (0.0-1.0) mg/dL Direct Bilirubin 0.1 (0.0-0.5) mg/dL AST 21 (5-37) U/L ALT 16 (0-40) U/L Alkaline Phosphatase 67 (39-117) U/L Total Protein 7.2 (6.5-8.0) g/dL Albumin 5.0 (3.5-5.0) g/dL Lipase 62 (8-78) U/L Urine Color Yellow Urine Appearance Clear Urine pH >= 9.0 (5.0-9.0) Ur Specific Epes 1.025 (1.005-1.025) Urine Protein 100 (2+) H (Neg-Trace) mg/dL Urine Glucose (UA) Negative (Negative) mg/dL Urine Ketones 40 (Negative) mg/dL Urine Blood Moderate (2+) H (Negative) Urine Nitrite Negative (Negative) Ur Leukocyte Esterase Trace H (Negative) Urine RBC >20 H (0-2) /HPF Urine WBC 0-5 (0-5) /HPF Ur Squamous Epith Cells 0-2 (0-2) /HPF Urine Bacteria None Seen (None Seen) Hyaline Casts 0-2 (0-2) /LPF Independent Interpretation I performed an independent interpretation of an: CT Scan Interpretation: CT abdomen/pelvis showing stone to left UVJ Radiology Impression Discussion of test interpretation with radiology: I have reviewed the radiologist's reading. Radiologist Impression: Date of Service: 01/31/25 Procedure(s): CT abdomen pelvis wo IV con Accession Number(s): [id number] cc: Karli Be; Physician,Unknown ~ Report Number: [id number]: Total DLP = 255.00 mGy-cm EXAMINATION: CT ABDOMEN AND PELVIS WITHOUT CONTRAST CLINICAL INFORMATION: Left flank pain. DLP: 255 mGY*cm COMPARISON: December 14, 2022 TECHNIQUE: Multidetector volumetric imaging was performed from the superior aspect of the liver through the pubic symphysis. Sagittal and coronal reformatted images were obtained on the technologist's workstation. This CT examination was performed using dose optimization techniques as appropriate, variously including the following: *Automated exposure control *Adjustment of mA and/or kV according to patient size (this includes techniques or standardized protocols for targeted exams where dose is matched to indication/reason for exam; i.e. extremities or head) *Use of iterative reconstruction technique FINDINGS: LUNG BASES: The visualized lung bases are unremarkable. LIVER, GALLBLADDER, AND BILIARY TREE: There is a low attenuating lesion in the anterior-inferior right hepatic lobe measuring 1.9 x 2.0 cm and 44 Hounsfield units. It appeared similar on the prior study.. The gallbladder is unremarkable with no evidence of radiopaque gallstones, gallbladder wall thickening, or obvious pericholecystic inflammatory changes. PANCREAS: Unremarkable. SPLEEN: Unremarkable. ADRENAL GLANDS: Unremarkable. KIDNEYS AND URETERS: Again noted is evidence of faint medullary nephrocalcinosis involving the right greater than left kidneys. There are a few punctate 1 mm stones in the kidneys, bilateral. Due to robust muscle bulk, very little intra-abdominal fat, and an empty urinary bladder, delineation of the ureters in the abdomen and pelvis is limited. There is mild hydronephrosis on the left and a 4 mm stone in the distal ureter, near the UVJ. BLADDER: Decompressed. Left UVJ stone. GASTROINTESTINAL TRACT: Somewhat limited evaluation due to low intra-abdominal fat and well developed musculature. The small and large bowel are unremarkable. The appendix is not well seen. ABDOMINAL WALL: No significant hernia is appreciated. LYMPH NODES: Normal. VASCULAR: Unremarkable. PELVIC VISCERA: Unremarkable. OSSEOUS STRUCTURES: Bilateral pars intraarticularis defect is present at L5 with nonunion on the right and deformity with bridging bone on the left. CT/CT abdomen pelvis wo IV con IMPRESSION: 4 mm left UVJ stone with mild hydronephrosis. Suspected mild nephrocalcinosis, right greater than left. Possible etiologies include distal renal tubular acidosis, medullary sponge kidney, hyperparathyroidism, as well as other etiologies. Indeterminate liver lesion in segment 5. Follow-up MRI dynamic liver protocol without and with IV contrast. 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 Fleischner guidelines were followed. Electronically signed by: Blue Rice MD 01/31/2025 01:10 PM EDT External Record Review External record reviewed: Inpatient record Prescription Management I considered prescription management with: Pain Medication and Other (Prednisone, Flomax) Chronic Conditions Patient?s care impacted by: Other (Nephrolithiasis) Social Determinants Patient?s care significantly limited by Social Determinants of Health including: Other Social Determinant of Health Critical Care Time Critical Care Time Critical Care Time: Yes Total Critical Care Time: 32 Attestation: Critical care time in the amount of 32 minutes has been provided to the patient in terms of direct patient care, frequent reevaluation on IV morphine, review and interpretation of medical data and results, and management of potentially life-threatening conditions. This is all outside of any medical procedures. Discharge Plan Discharge Clinical Impression: Calculus of ureterovesical junction (UVJ) Patient Disposition: Home, Self-Care Instructions: Ureteral Stones (ED) Additional Instructions: Your blood work today is reassuring. Your urine shows microscopic blood consistent with passing a stone. no infection. The CT scan of your abdomen shows a 4 mm stone attempting to pass into your bladder. This is causing your pain. A stone this size should pass on its own however I am prescribing some medication to help with its passage. Prednisone as a steroid that will help with inflammation. Take this as prescribed over the next few days. Flomax has been sent to your pharmacy. Take this as prescribed daily. Toradol as an anti-inflammatory pain medication that you were given through the IV in the ED today with improvement in pain. I am sending an oral prescription to your pharmacy. Do not take this with other NSAIDs such as Motrin as this can cause increased risk of GI bleeding. Please follow up with Urology. You have been provided with a referral. Call them to establish care. They will not call you.. Return with any new or worsening symptoms. In the case of an emergency call 911. Prescriptions: New prednisone 20 mg tablet 40 mg PO DAILY PRN (Reason: pain (scale score 4-6)) 5 Days Qty: 10 0RF tamsulosin [Flomax] 0.4 mg capsule 0.4 mg PO BEDTIME Qty: 14 0RF ondansetron 4 mg tablet,disintegrating 4 mg PO Q12H PRN (Reason: nausea and vomiting) 5 Days Qty: 10 0RF ketorolac 10 mg tablet 10 mg PO Q8H 5 Days Qty: 15 0RF No Action tamsulosin [Flomax] 0.4 mg capsule 0.4 mg PO DAILY Qty: 14 0RF ibuprofen 600 mg tablet 600 mg PO Q8H PRN (Reason: pain) Qty: 20 0RF oxycodone 5 mg tablet 5 mg PO Q8H PRN (Reason: severe pain (scale score 7-10)) Qty: 6 0RF Rx Instructions: Partial Fill upon patient request. prednisone 20 mg tablet 40 mg PO DAILY Qty: 6 0RF Referrals: [facility] [Provider Group] - 1 week (4 mm UVJ stone) Interventions: ED Discharge Assessment Last Done: 01/31/25 17:01 Discharge Date/Time: 01/31/25 17:03 Print Language: Unable To Collect
[2025-01-31 13:05] LABS: Alanine Aminotransferase 16 U/L (0-40); Alkaline Phosphatase 67 U/L (39-117); Anion Gap 16 (12-20); Aspartate Amino Transferase 21 U/L (5-37); Bilirubin Direct 0.1 mg/dL (0.0-0.5); Bilirubin Total 0.4 mg/dL (0.0-1.0); Blood Urea Nitrogen 14 mg/dL (9-16); Calcium 9.9 mg/dL (8.4-10.2); Carbon Dioxide 21 mmol/L (22-29); Chloride 108 mmol/L (96-108); Estimated Glomerular Filt Rate > 60; Glucose Random 136 mg/dL (60-115); Lipase 62 U/L (8-78); Magnesium 1.9 mg/dL (1.6-2.6); Potassium 3.7 mmol/L (3.3-5.1); Sodium 141 mmol/L (135-145); Total Protein 7.2 g/dL (6.5-8.0)
[2025-01-31] MEDS: ondansetron HCL 4 MG/2 ML VIAL IVPUSH (13:19)
[2025-01-31] MEDS: Morphine Sulfate 4 MG/ML CARTRIDGE IVPUSH (13:19)
[2025-01-31] MEDS: 0.9 % Sodium Chloride 1,000 ML 999 ML IV (13:19)
[2025-01-31] MEDS: Ketorolac Tromethamine 30 MG/ML VIAL IVPUSH (13:57)
[2025-01-31 14:00] VITALS: BP 107/62; PULSE 56; RESP 16; TEMP 37.1; O2SAT 96
[2025-01-31 16:09] VITALS: BP 96/74; PULSE 50; RESP 18; TEMP 36.8; O2SAT 100
[2025-01-31 16:19] LABS: Appearance Urine Clear; Color Urine Yellow; Glucose Urine UA Negative (Negative); Leukocyte Esterase Urine Trace (Negative); Nitrite Urine Negative (Negative); PH >= 9.0 (5.0-9.0); Specific Gravity - Urine 1.025 (1.005-1.025); UMIC TRIGGER UACC YES; Urine Blood Moderate (2+) (Negative); Urine Ketones 40 mg/dL (Negative); Urine Protein 100 (2+) mg/dL (Neg-Trace)
[2025-01-31 16:25] LABS: Bacteria Urine None Seen (None Seen); Hyaline Casts Urine 0-2 /LPF (0-2); RBC Urine >20 /HPF (0-2); Squamous Epithelial Cell Urine 0-2 /HPF (0-2); WBC Urine 0-5 /HPF (0-5)
[2025-01-31 17:01] VITALS: BP 97/64; PULSE 60; RESP 16; TEMP 526.6; TEMP 980; O2SAT 100
== END 2025-01-31 17:03 | disposition home or self-care (01) ==
PROVIDERS: Physician Assistant Medical; Emergency Provider Emergency Medicine Emergency Medical Services
DX: N20.1 Calculus of ureter (principal); R10.9 Unspecified abdominal pain; R11.2 Nausea with vomiting, unspecified
CPT/HCPCS: 36415; 74176; 80048; 80076; 81001; 83690; 83735; 85025; 96361; 96374; 96375; 99284; 99285; J1885; J2270; J2405

== ENCOUNTER → 2025-01-31 12:08 | Outpatient (BNV) | payer SELFPAY | PROVIDERS: Emergency Provider Emergency Medicine Emergency Medical Services; Visit Provider Radiology Diagnostic Radiology | DX: N20.1 Calculus of ureter (principal) | CPT/HCPCS: 74176 ==